=== PATIENT | male | born 1955 | race Caucasian/White ===

== ENCOUNTER 2025-01-16 09:40 | Outpatient (CLI) | payer OTHER, SELFPAY ==
--- NOTE | 2025-01-23 11:37 | W.PM.SLEEP ---
Sleep Study Details Details Interpreting Provider: Jayla Date of Sleep Study: 01/16/25 Sleep Study Details: STUDY TYPE:? Home unattended ? BMI:? 22.2 ORDERING PROVIDER:Sophy Dickerson INDICATION:? Concern for sleep apnea ? SLEEP SUMMARY:? 440 minutes monitored RESPIRATORY SUMMARY:? AHI 6.4 per CMS guideline , 8.3 per rule 1A Low oxygen 84 0.8% of study oxygen less than 90% Snoring 87.1% PERIODIC LIMB MOVEMENTS OF SLEEP:? Not recorded CARDIAC:? Range 53-105, mean 66.2 noted during time in bed it was noted that he had a heart rate of 255. I will check to be sure this is accurate and not a typo. IMPRESSION:? Mild obstructive sleep apnea RECOMMENDATION: Treatment options include CPAP dental appliance and/or airway expansion surgery.
--- NOTE | 2025-01-24 13:15 | W.PM.SLEEP ---
Sleep Study Details Details Interpreting Provider: Jayla Date of Sleep Study: 01/16/25 Sleep Study Details: STUDY TYPE:? Home unattended ? BMI:? 22.2 ORDERING PROVIDER:? Jayla INDICATION:? Concern about sleep apnea ? SLEEP SUMMARY:? 440 minutes monitored RESPIRATORY SUMMARY:? AHI 8.3 Low oxygen 84 0.8% of study oxygen below 90% Snoring 87% PERIODIC LIMB MOVEMENTS OF SLEEP:? Not record CARDIAC:? Range 53-105, mean 66.2 beats per minute IMPRESSION:? Mild obstructive sleep apnea RECOMMENDATION: Treatment options include CPAP dental appliance and/or airway expansion surgery.
== END 2025-01-16 09:41 | disposition home or self-care (01) ==
PROVIDERS: Visit Provider Otolaryngology
DX: G47.33 Obstructive sleep apnea (adult) (pediatric) (principal)
CPT/HCPCS: 95806